=== PATIENT | male | born 2000 | race Caucasian/White ===

== ENCOUNTER 2023-06-10 07:10 | Emergency (ER) | payer SELFPAY ==
[2023-06-10] MEDS ORDERED: Ondansetron 4 MG/2 ML SDV IVPUSH ONE (07:11)
[2023-06-10] MEDS ORDERED: Ketorolac 30 MG/ML SDV IVPUSH ONE (07:11)
[2023-06-10] MEDS ORDERED: Morphine 4 MG/ML Syringe IVPUSH ONE (07:11)
[2023-06-10] MEDS ORDERED: Sodium Chloride 0.9% 1,000 ML IV ONE ×2 (07:11→08:21)
[2023-06-10 07:36] LABS: BASOPHILS ABSOLUTE AUTO 0.06 K/uL (0.00-0.20); BASOPHILS PERCENT AUTO 0.8 % (0.0-1.0); EOSINOPHILS ABSOLUTE AUTO 0.11 K/uL (0.00-0.45); EOSINOPHILS PERCENT AUTO 1.5 % (0.0-6.0); HEMATOCRIT 40.9 % (42.0-52.0); HEMOGLOBIN 14.5 g/dL (14.0-18.0); IMMATURE GRAN ABSOLUTE AUTO 0.01 K/uL (0.00-0.05); IMMATURE GRAN PERCENT AUTO 0.1 % (0.0-0.4); LYMPHOCYTES ABSOLUTE AUTO 2.65 K/uL (1.00-4.80); MEAN CORPUSCULAR HGB CONC 35.5 g/dL (32.0-36.0); MEAN CORPUSCULAR VOLUME 93.2 fL (83.0-99.0); MEAN PLATELET VOLUME 9.4 fL (9.4-12.4); MONOCYTES ABSOLUTE AUTO 0.68 K/uL (0.00-0.80); NEUTROPHILS ABSOLUTE AUTO 4.06 K/uL (1.80-7.70); NEUTROPHILS PERCENT AUTO 53.6 % (41.0-71.0); PLATELET COUNT,PLT 320 K/uL (150-400); RED BLOOD CELL COUNT 4.39 M/uL (4.52-5.90); WHITE BLOOD CELL COUNT,WBC 7.57 K/uL (3.9-11.3)
[2023-06-10 07:57] LABS: A/G RATIO 1.1 (0.9-1.6); ALBUMIN 3.8 g/dL (3.4-5.0); BILIRUBIN TOTAL 0.5 mg/dL (0.2-1.0); CALCIUM 8.7 mg/dL (8.5-10.1); CARBON DIOXIDE,CO2 26.8 mmol/L (21.0-32.0); CREATININE 1.2 mg/dL (0.8-1.3); EST CRCL DRUG DOSING (CG) 85.49 mL/min; POTASSIUM,K 4.1 mmol/L (3.5-5.1); PROTEIN TOTAL,TP 7.4 g/dL (6.4-8.2)
[2023-06-10 09:15] LABS: APPEARANCE,URINE CLOUDY; COLOR,URINE BROWN; GLUCOSE,URINE NEGATIVE (NEGATIVE); KETONES,URINE NEGATIVE (NEGATIVE); LEUKOCYTE ESTERASE,URINE NEGATIVE (NEGATIVE); NITRITE,URINE POSITIVE (NEGATIVE); OCCULT BLOOD,URINE MODERATE (NEGATIVE); PH,URINE 6.5 (5.0-8.0); PROTEIN,URINE 30 mg/dL (NEGATIVE); UROBILINOGEN,URINE 0.2 EU/dL (<2.0)
[2023-06-10 09:17] LABS: BILIRUBIN,URINE SMALL (NEGATIVE)
[2023-06-10 09:37] LABS: BACTERIA,URINE FEW (NEGATIVE); CALCIUM OXALATE CRYSTALS,URINE OCCASIONAL (NEGATIVE); EPITHELIAL CELLS,URINE RARE (NONE-FEW); RBC,URINE TOO NUMEROUS TO CT (0-2/HPF)
[2023-06-10 09:38] LABS: SPERM,URINE RARE (NEGATIVE)
== END 2023-06-10 10:04 | disposition home or self-care (01) ==
LOC: MW.ED 07:10
DX: N13.2 Hydronephrosis with renal and ureteral calculous obstruction (principal)
CPT/HCPCS: 36415; 74176; 80053; 81001; 85025; 96361; 96374; 96375; 99284; J1885; J2270; J2405; J7030

== ENCOUNTER 2024-04-16 22:23 | Emergency (ER) | payer SELFPAY ==
[2024-04-16 23:46] LABS: BASOPHILS ABSOLUTE AUTO 0.06 K/uL (0.00-0.20); BASOPHILS PERCENT AUTO 0.3 % (0.0-1.0); EOSINOPHILS ABSOLUTE AUTO 0.04 K/uL (0.00-0.45); EOSINOPHILS PERCENT AUTO 0.2 % (0.0-6.0); HEMATOCRIT 50.3 % (42.0-52.0); HEMOGLOBIN 18.2 g/dL (14.0-18.0); IMMATURE GRAN ABSOLUTE AUTO 0.07 K/uL (0.00-0.05); IMMATURE GRAN PERCENT AUTO 0.4 % (0.0-0.4); LYMPHOCYTES ABSOLUTE AUTO 0.36 K/uL (1.00-4.80); LYMPHOCYTES PERCENT AUTO 1.9 % (24.0-44.0); MEAN CORPUSCULAR HEMOGLOBIN 32.8 pg (28.0-32.0); MEAN CORPUSCULAR HGB CONC 36.2 g/dL (32.0-36.0); MEAN CORPUSCULAR VOLUME 90.6 fL (83.0-99.0); MEAN PLATELET VOLUME 8.8 fL (9.4-12.4); MONOCYTES ABSOLUTE AUTO 1.41 K/uL (0.00-0.80); MONOCYTES PERCENT AUTO 7.3 % (0.0-8.0); NEUTROPHILS ABSOLUTE AUTO 17.28 K/uL (1.80-7.70); NEUTROPHILS PERCENT AUTO 89.9 % (41.0-71.0); PLATELET COUNT,PLT 259 K/uL (150-400); RED BLOOD CELL COUNT 5.55 M/uL (4.52-5.90); WHITE BLOOD CELL COUNT,WBC 19.22 K/uL (3.9-11.3)
[2024-04-16] MEDS: Famotidine 20 MG/2 ML SDV IVPUSH ONE (23:47)
[2024-04-16] MEDS: Sodium Chloride 0.9% 1,000 ML IV ONE (23:48)
[2024-04-16] MEDS: Ondansetron 4 MG/2 ML SDV IVPUSH ONE (23:53)
[2024-04-16] MEDS: Haloperidol Lactate 5 MG/ML SDV IM ONE (23:58)
[2024-04-16] MEDS: diphenhydrAMINE 50 MG/ML SDV IVPUSH ONE (23:58)
[2024-04-17 00:16] LABS: A/G RATIO 1.2 (0.9-1.6); ALANINE AMINOTRANSFERASE,ALT 36 IU/L (14-63); ALKALINE PHOSPHATASE 99 U/L (46-116); ASPARTATE AMNIOTRANSFERASE,AST 27 IU/L (15-37); BLOOD UREA NITROGEN,BUN 13 mg/dL (7.0-18.0); CALCIUM 10.1 mg/dL (8.5-10.1); CARBON DIOXIDE,CO2 25.1 mmol/L (21.0-32.0); CHLORIDE,CL 100 mmol/L (98-107); CREATININE 1.5 mg/dL (0.8-1.3); GLUCOSE RANDOM 131 mg/dL (74-106); LIPASE 18 U/L (16-77); POTASSIUM,K 4.1 mmol/L (3.5-5.1); PROTEIN TOTAL,TP 9.2 g/dL (6.4-8.2); SODIUM,NA 139 mmol/L (136-148)
[2024-04-17 00:19] LABS: ESTIMATED GFR 67 mL/min (>60)
[2024-04-17] MEDS: Sodium Chloride 0.9% 1,000 ML IV ONE (01:02)
== END 2024-04-17 02:20 | disposition home or self-care (01) ==
LOC: MW.ED 22:23
DX: R11.2 Nausea with vomiting, unspecified (principal); R19.7 Diarrhea, unspecified; F17.200 Nicotine dependence, unspecified, uncomplicated
CPT/HCPCS: 36415; 80053; 83690; 85025; 96361; 96372; 96374; 96375; 99284; J1200; J1630; J2405; J3490; J7030